=== PATIENT | male | born 1940 | race Caucasian/White ===

== ENCOUNTER 2019-05-31 06:06 | Day surgery (SDC) | payer MEDICARE ==
[2019-05-31] MEDS ORDERED: Lactated Ringers 1,000 ML IV ONE (06:27)
[2019-05-31] MEDS ORDERED: Lactated Ringers 1,000 ML IV SCH (06:30)
[2019-05-31] MEDS ORDERED: DIPRIVAN 200 MG/20 ML IV ONE ×2 (07:27)
[2019-05-31 09:01] VITALS: O2SAT 97
[2019-05-31 09:05] VITALS: BP 122/68; PULSE 56
--- NOTE | 2019-05-31 10:21 | OP ---
SURGERY DATE/TIME: 05/31/2019 0743 PREOPERATIVE DIAGNOSIS: Screening exam. POSTOPERATIVE DIAGNOSIS: Scattered diverticula otherwise normal colon. PROCEDURE: Colonoscopy. SURGEON: Dr. Altamirano. ANESTHESIA: MAC. Medications given by anesthesia department. HISTORY: The patient is a 78 year-old white male patient presenting now for screening colonoscopy. He reports his previous one was over ten years ago. The patient was described the risks of the procedure including the risk of perforation, phlebitis, untoward reaction to medication, bleeding and missed lesions. The patient verbalized his understanding and desired to have the procedure performed. DESCRIPTION OF PROCEDURE: The patient was given the medications by the anesthesia department. He had continuous pulse oximetry, ECG monitoring, intermittent blood pressure monitoring and tidal CO2 monitoring during the examination. He was placed in the left lateral decubitus position. A digital rectal examination was performed and revealed normal anal sphincter tone, no masses and normal prostate. The flexible Olympus pediatric colonoscope was used to intubate the rectum. A view of the colon was developed sequentially to the cecum. Upon insertion and withdrawal, including a retroflex view in the rectum was noted a few scattered diverticula otherwise no mucosal lesions were encountered. The scope was removed from the patient who tolerated the procedure well and was sent back to OP recovery in good condition. The prep was noted to be fair.
== END 2019-05-31 09:18 | disposition home or self-care (01) ==
LOC: SDC 06:06
PROVIDERS: ATTEND Family Medicine
DX: Z12.11 Encounter for screening for malignant neoplasm of colon (principal); K57.30 Diverticulosis of large intestine without perforation or abscess without bleeding; E11.9 Type 2 diabetes mellitus without complications; I10 Essential (primary) hypertension
CPT/HCPCS: 82962; 99100; J2704

== ENCOUNTER 2021-08-03 15:01 | Observation (INO) | payer MEDICARE ==
--- NOTE | 2021-08-03 15:09 | ERPHSYRPT ---
- History of Present Illness Time Seen by Provider: 08/03/21 15:09 Source: patient Exam Limitations: clinical condition Physician History: This is an 80-year-old white male patient of Dr. Altamirano who has not been feeling well for the last 1 to 2 weeks. He has been having weakness and diarrhea intermittently. He did not have any diarrhea today. He had an appointment to see Dr. Altamirano in his office today. The patient did see outpatient clinic 2 days ago and was given crystalloid infusion intravenously. They told the patient he was dehydrated. According to the patient, no labs were obtained and no swabs were obtained to evaluate for any influenza infection. At Dr. Altamirano's office, Dr. Altamirano stated that the patient's heart rate is in the 130s. They did not do a twelve-lead EKG. Because of the patient's weakness and findings of at least tachycardia in the 130s, Dr. Altamirano sent the patient to the emergency department for further evaluation and management. Patient has a history of hypertension, elevated cholesterol and diabetes. Patient denies ch est pain. He chronically has abdominal pain and it is not different than usual for him. Timing/Duration: week(s) (1 to 2), worse Severity: moderate Associated Symptoms: weakness, other (Diarrhea) Allergies/Adverse Reactions: amoxicillin Allergy (Severe, Verified 08/01/21 16:43) Diarrhea Home Medications: Amlodipine Besylate 5 mg [Norvasc 5 mg] 5 mg PO DAILY 05/18/19 [History] Aspirin EC 81 mg [Ecotrin 81 mg] 81 mg PO UD 05/18/19 [History] Canagliflozin [Invokana] 100 mg PO DAILY 05/18/19 [History] Garlic 1,000 mg PO DAILY 05/18/19 [History] Glipizide 5 mg [Glucotrol 5 MG] 5 mg PO QID 05/18/19 [History] Multivitamin W-Minerals/Lutein [Centrum Silver Tablet] 1 each PO DAILY 05/18/19 [History] Red Yeast Rice 600 mg PO DAILY 05/18/19 [History] Saw [place] Fruit/Zinc Picoli [Saw [place] 450 mg Capsule] 1 each PO DAILY 05/18/19 [History] Terazosin HCl 2 mg PO DAILY 05/18/19 [History] ramipriL [Altace] 10 mg PO DAILY 05/18/19 [History] [place]-3 Fatty Acids [[place]-3] 1,000 mg PO DAILY 08/01/21 [History] Simvastatin 20Mg [Zocor 20Mg] 20 mg PO DAILY 08/01/21 [History] Travel Risk - International Travel Have you traveled outside of the country in past 3 weeks: No - Coronavirus Screening Are you exhibiting any of the following symptoms?: Yes Symptoms: Vomiting/Diarrhea Close contact with a COVID-19 positive Pt in past 14-21 Days: No - Review of Systems Constitutional: Weakness Eyes: No Symptoms Ears, Nose, & Throat: No Symptoms Respiratory: No Symptoms Cardiac: Palpitations Abdominal/Gastrointestinal: Diarrhea, No Abdominal Pain Genitourinary Symptoms: No Symptoms Musculoskeletal: No Symptoms Skin: No Symptoms Neurological: No Symptoms Psychological: No Symptoms Endocrine: No Symptoms Hematologic/Lymphatic: No Symptoms Immunological/Allergic: No Symptoms All Other Systems: Reviewed and Negative - Past Medical History Pertinent Past Medical History: Yes Neurological History: No Pertinent History ENT History: No Pertinent History Cardiac History: Hypertension Respiratory History: No Pertinent History Endocrine Medical History: Diabetes Type II Musculoskeletal History: No Pertinent History GI Medical History: No Pertinent History History: No Pertinent History Psycho-Social History: No Pertinent History Male Reproductive Disorders: No Pertinent History Other Medical History: hx smoker - Past Surgical History Past Surgical History: Yes Neuro Surgical History: No Pertinent History Cardiac: No Pertinent History Respiratory: No Pertinent History Gastrointestinal: Appendectomy Genitourinary: No Pertinent History Musculoskeletal: Other Male Surgical History: No Pertinent History Other Surgical History: plate and screws in lt elbow. - Social History Smoking Status: Former smoker Exposure to second hand smoke: No Drug Use: none - Nursing Vital Signs Nursing Vital Signs: Initial Vital Signs Temperature 98.2 F 08/03/21 15:15 Pulse Rate 93 H 08/03/21 15:15 Respiratory Rate 18 08/03/21 15:15 Blood Pressure 147/81 08/03/21 15:15 O2 Sat by Pulse Oximetry 97 08/03/21 15:15 Pain Scale Pain Intensity 8 - Physical Exam General Appearance: no apparent distress, alert, anxiety Eye Exam: PERRL/EOMI, eyes nml inspection Ears, Nose, Throat Exam: normal ENT inspection, dry mucous membranes Neck Exam: normal inspection, non-tender, supple, full range of motion Respiratory Exam: normal breath sounds, lungs clear, airway intact, No chest tenderness, No respiratory distress Cardiovascular Exam: regular rate/rhythm, normal heart sounds, normal peripheral pulses Gastrointestinal/Abdomen Exam: soft, normal bowel sounds, No tenderness Rectal Exam: not done Back Exam: normal inspection, normal range of motion, No CVA tenderness, No vertebral tenderness Extremity Exam: normal inspection, normal range of motion, pelvis stable Neurologic Exam: alert, oriented x 3, cooperative, 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, normal mood/affect, nml cerebellar function, nml station & gait, sensation nml Skin Exam: normal color, warm, dry Lymphatic Exam: No adenopathy SpO2 Interpretation: normal O2 Delivery: Room Air - Course Nursing assessment & vital signs reviewed: Yes EKG Interpreted by Me: RATE (100), Sinus Tach, Left [place] Deviation, NORMAL INTERVALS, NORMAL QRS, NORMAL ST-T, Other (No acute ischemic changes on today's EKG.) Ordered Tests: Active Orders 24 hr Category Date Time Status EKG-ER Only STAT Care 08/03/21 15:09 Active IV Insertion STAT Care 08/03/21 15:09 Active Pulse Oximetry (ED) STAT Care 08/03/21 15:09 Active ABDOMEN AND PELVIS W/0 CONTRAS [CT] Stat Exams 08/03/21 16:10 Completed CHEST WITH CONTRAST [CT] Stat Exams 08/03/21 16:21 Completed AMYLASE Stat Lab 08/03/21 16:09 Completed BLOOD CULTURE Stat Lab 08/03/21 16:20 Received CBC W DIFF Stat Lab 08/03/21 15:09 Completed CMP Stat Lab 08/03/21 15:30 Completed D-DIMER QUANTITATIVE Stat Lab 08/03/21 15:30 Completed Direct Bilirubin Stat Lab 08/03/21 16:09 Completed INFLUENZA A+B DIEGO Stat Lab 08/03/21 16:20 Completed LIPASE Stat Lab 08/03/21 16:09 Completed Lactic Acid Stat Lab 08/03/21 15:21 Completed Manual Differential NC Stat Lab 08/03/21 15:09 Completed [place] Screen Stat Lab 08/03/21 15:30 Completed NT PRO BNP Stat Lab 08/03/21 15:30 Completed PROTIME WITH INR Stat Lab 08/03/21 15:30 Completed TROPONIN Q3H Lab 03/18/22 15:30 Completed TROPONIN Q3H Lab 08/03/21 17:29 Received TROPONIN Q3H Lab 08/03/21 21:15 Ordered TROPONIN Q3H Lab 08/04/21 00:15 Ordered TROPONIN Q3H Lab 08/04/21 03:15 Ordered Transfer Order Routine Transfer 08/03/21 Ordered Medication Summary Generic Name Dose Route Start Last Admin Trade Name Freyadi PRN Reason Stop Dose Admin Sodium Chloride 1,000 mls @ 100 mls/hr 08/03/21 15:15 08/03/21 15:34 Sodium Chloride 0.9% 1000 Ml IV 09/02/21 15:14 100 mls/hr .Q10H VICK Administration Discontinued Medications Generic Name Dose Route Start Last Admin Trade Name Freq PRN Reason Stop Dose Admin Apixaban 10 mg 08/03/21 17:36 Apixaban 2.5 Mg Tablet PO 08/03/21 17:37 STAT ONE Enoxaparin Sodium 90 mg 08/03/21 17:22 Enoxaparin Sodium 120 Mg/0.8 Ml Syringe SQ 08/03/21 17:23 STAT STA Lab/Rad Data: Laboratory Result Diagrams 08/03/21 15:09 08/03/21 15:30 Laboratory Results 08/03/21 08/03/21 08/03/21 Range/Units 16:20 16:20 16:09 WBC (4.0-10.5) K/mm3 RBC (4.1-5.6) M/mm3 Hgb (12.5-18.0) gm/dl Hct (42-50) % MCV (78-100) fl MCH (26-32) pg MCHC (32-36) g/dl RDW (11.5-14.0) % Plt Count (150-450) K/mm3 MPV (7.5-11.0) fl PT (9.4-12.5) SECONDS INR (0.8-3.0) D-Dimer (215-500) ng/mL Sodium (137-145) mmol/L Potassium (3.5-5.1) mmol/L Chloride (98-107) mmol/L Carbon Dioxide (22-30) mmol/L Anion Gap (5-15) MEQ/L BUN (9-20) mg/dL Creatinine (0.66-1.25) mg/dL Estimated GFR ML/MIN Glucose (74-106) mg/dL Lactic Acid (0.4-2.0) Calcium (8.4-10.2) mg/dL Total Bilirubin (0.2-1.3) mg/dL Direct Bilirubin 0.4 (0.0-0.4) mg/dL AST (17-59) U/L ALT (0-50) U/L Alkaline Phosphatase (38-126) U/L Troponin I (0.000-0.034) ng/mL NT-Pro-B Natriuret Pep (0-1800) pg/mL Serum Total Protein (6.3-8.2) g/dL Albumin (3.5-5.0) g/dL Amylase 45 (30-110) U/L Lipase 68 (23-300) U/L Urinalys Dipstick Clnc Urine Color (YELLOW) Urine Appearance (CLEAR) Urine pH (5-6) Ur Specific [place] (1.005-1.025) POC Urine Protein Conf (Negative) Urine Ketones (NEGATIVE) Urine Nitrite (NEGATIVE) Urine Bilirubin (NEGATIVE) Urine Urobilinogen (0-1) mg/dL Urine Leukocytes (NEGATIVE) Urine WBC (Auto) (0-5) /HPF Urine RBC (Auto) (0-2) /HPF U Epithel Cells (Auto) (FEW) /HPF Urine Bacteria (Auto) (NEGATIVE) /HPF Urine RBC (0-5) Romero/ul Ur Culture Indicated? Urine Glucose (NEGATIVE) mg/dL Monoscreen (Negative) Influenza Type A Ag NEGATIVE (NEGATIVE) Influenza Type B Ag NEGATIVE (NEGATIVE) Group A Strep Antibody NOT DETECTED (NEGATIVE) 08/03/21 08/03/21 08/03/21 Range/Units 15:30 15:30 15:30 WBC (4.0-10.5) K/mm3 RBC (4.1-5.6) M/mm3 Hgb (12.5-18.0) gm/dl Hct (42-50) % MCV (78-100) fl MCH (26-32) pg MCHC (32-36) g/dl RDW (11.5-14.0) % Plt Count (150-450) K/mm3 MPV (7.5-11.0) fl PT 12.4 (9.4-12.5) SECONDS INR 1.05 (0.8-3.0) D-Dimer 6163 H* (215-500) ng/mL Sodium (137-145) mmol/L Potassium (3.5-5.1) mmol/L Chloride (98-107) mmol/L Carbon Dioxide (22-30) mmol/L Anion Gap (5-15) MEQ/L BUN (9-20) mg/dL Creatinine (0.66-1.25) mg/dL Estimated GFR ML/MIN Glucose (74-106) mg/dL Lactic Acid (0.4-2.0) Calcium (8.4-10.2) mg/dL Total Bilirubin (0.2-1.3) mg/dL Direct Bilirubin (0.0-0.4) mg/dL AST (17-59) U/L ALT (0-50) U/L Alkaline Phosphatase (38-126) U/L Troponin I < 0.012 (0.000-0.034) ng/mL NT-Pro-B Natriuret Pep (0-1800) pg/mL Serum Total Protein (6.3-8.2) g/dL Albumin (3.5-5.0) g/dL Amylase (30-110) U/L Lipase (23-300) U/L Urinalys Dipstick Clnc Urine Color (YELLOW) Urine Appearance (CLEAR) Urine pH (5-6) Ur Specific [place] (1.005-1.025) POC Urine Protein Conf (Negative) Urine Ketones (NEGATIVE) Urine Nitrite (NEGATIVE) Urine Bilirubin (NEGATIVE) Urine Urobilinogen (0-1) mg/dL Urine Leukocytes (NEGATIVE) Urine WBC (Auto) (0-5) /HPF Urine RBC (Auto) (0-2) /HPF U Epithel Cells (Auto) (FEW) /HPF Urine Bacteria (Auto) (NEGATIVE) /HPF Urine RBC (0-5) Romero/ul Ur Culture Indicated? Urine Glucose (NEGATIVE) mg/dL Monoscreen NEGATIVE (Negative) Influenza Type A Ag (NEGATIVE) Influenza Type B Ag (NEGATIVE) Group A Strep Antibody (NEGATIVE) 08/03/21 08/03/21 08/03/21 Range/Units 15:30 15:24 15:21 WBC (4.0-10.5) K/mm3 RBC (4.1-5.6) M/mm3 Hgb (12.5-18.0) gm/dl Hct (42-50) % MCV (78-100) fl MCH (26-32) pg MCHC (32-36) g/dl RDW (11.5-14.0) % Plt Count (150-450) K/mm3 MPV (7.5-11.0) fl PT (9.4-12.5) SECONDS INR (0.8-3.0) D-Dimer (215-500) ng/mL Sodium 138 (137-145) mmol/L Potassium 4.1 (3.5-5.1) mmol/L Chloride 102 (98-107) mmol/L Carbon Dioxide 22 (22-30) mmol/L Anion Gap 17.8 H (5-15) MEQ/L BUN 16 (9-20) mg/dL Creatinine 0.78 (0.66-1.25) mg/dL Estimated GFR > 60.0 ML/MIN Glucose 145 H (74-106) mg/dL Lactic Acid 1.8 (0.4-2.0) Calcium 9.2 (8.4-10.2) mg/dL Total Bilirubin 0.90 (0.2-1.3) mg/dL Direct Bilirubin (0.0-0.4) mg/dL AST 26 (17-59) U/L ALT 16 (0-50) U/L Alkaline Phosphatase 56 (38-126) U/L Troponin I (0.000-0.034) ng/mL NT-Pro-B Natriuret Pep 61.7 (0-1800) pg/mL Serum Total Protein 6.5 (6.3-8.2) g/dL Albumin 3.7 (3.5-5.0) g/dL Amylase (30-110) U/L Lipase (23-300) U/L Urinalys Dipstick Clnc Pending Urine Color YELLOW (YELLOW) Urine Appearance CLEAR (CLEAR) Urine pH 5.5 (5-6) Ur Specific [place] 1.020 (1.005-1.025) POC Urine Protein Conf NEGATIVE (Negative) Urine Ketones >=160 (NEGATIVE) Urine Nitrite NEGATIVE (NEGATIVE) Urine Bilirubin SMALL (NEGATIVE) Urine Urobilinogen 0.2 (0-1) mg/dL Urine Leukocytes NEGATIVE (NEGATIVE) Urine WBC (Auto) NONE (0-5) /HPF Urine RBC (Auto) NONE (0-2) /HPF U Epithel Cells (Auto) NONE (FEW) /HPF Urine Bacteria (Auto) NONE (NEGATIVE) /HPF Urine RBC NEGATIVE (0-5) Romero/ul Ur Culture Indicated? NO Urine Glucose >=1000 (NEGATIVE) mg/dL Monoscreen (Negative) Influenza Type A Ag (NEGATIVE) Influenza Type B Ag (NEGATIVE) Group A Strep Antibody (NEGATIVE) 08/03/21 Range/Units 15:09 WBC 11.0 H (4.0-10.5) K/mm3 RBC 5.01 (4.1-5.6) M/mm3 Hgb 14.3 (12.5-18.0) gm/dl Hct 44.2 (42-50) % MCV 88.2 (78-100) fl MCH 28.5 (26-32) pg MCHC 32.4 (32-36) g/dl RDW 16.4 H (11.5-14.0) % Plt Count 242 (150-450) K/mm3 MPV 9.7 (7.5-11.0) fl PT (9.4-12.5) SECONDS INR (0.8-3.0) D-Dimer (215-500) ng/mL Sodium (137-145) mmol/L Potassium (3.5-5.1) mmol/L Chloride (98-107) mmol/L Carbon Dioxide (22-30) mmol/L Anion Gap (5-15) MEQ/L BUN (9-20) mg/dL Creatinine (0.66-1.25) mg/dL Estimated GFR ML/MIN Glucose (74-106) mg/dL Lactic Acid (0.4-2.0) Calcium (8.4-10.2) mg/dL Total Bilirubin (0.2-1.3) mg/dL Direct Bilirubin (0.0-0.4) mg/dL AST (17-59) U/L ALT (0-50) U/L Alkaline Phosphatase (38-126) U/L Troponin I (0.000-0.034) ng/mL NT-Pro-B Natriuret Pep (0-1800) pg/mL Serum Total Protein (6.3-8.2) g/dL Albumin (3.5-5.0) g/dL Amylase (30-110) U/L Lipase (23-300) U/L Urinalys Dipstick Clnc Urine Color (YELLOW) Urine Appearance (CLEAR) Urine pH (5-6) Ur Specific [place] (1.005-1.025) POC Urine Protein Conf (Negative) Urine Ketones (NEGATIVE) Urine Nitrite (NEGATIVE) Urine Bilirubin (NEGATIVE) Urine Urobilinogen (0-1) mg/dL Urine Leukocytes (NEGATIVE) Urine WBC (Auto) (0-5) /HPF Urine RBC (Auto) (0-2) /HPF U Epithel Cells (Auto) (FEW) /HPF Urine Bacteria (Auto) (NEGATIVE) /HPF Urine RBC (0-5) Romero/ul Ur Culture Indicated? Urine Glucose (NEGATIVE) mg/dL Monoscreen (Negative) Influenza Type A Ag (NEGATIVE) Influenza Type B Ag (NEGATIVE) Group A Strep Antibody (NEGATIVE) - Progress Progress: improved, re-examined Progress Note: 08/03/21 17:37 CAT scan of the abdomen without contrast shows fluid in the stomach and small bowel loops. Ileus versus gastroenteritis. There are tiny amount of fluid around the liver, both colic gutters and pelvis. This is presumed to be reactive. There are no walled off fluid collections. There is no free air. CAT scan of the chest with contrast shows extensive nonoccluding bilateral pulmonary emboli. 08/03/21 17:38 Medical decision making: This patient has had diarrhea for approximately 1 week. He has evidence of dehydration with ketones in his urine. He was tachycardic as well. In addition, it appears he has an ileus versus gastroenteritis. He will require intravenous fluid infusion. Additionally, he has pulmonary emboli bilateral which are nonoccluding. I spoke with Dr. Mina who is covering is hospitalist this weekend. Patient will receive Lovenox now as well as 10 mg Eliquis orally and then Eliquis 10 mg orally twice daily x7 days. We will place him in observation. We will repeat labs in the morning. Discussed with : Anastasiya Counseled pt/family regarding: lab results, diagnosis, rad results - Departure Departure Disposition: Observation Clinical Impression: Gastroenteritis, Dehydration, Pulmonary emboli Condition: Fair Critical Care Time: Yes Critical Care Time(excluding separately billable procedures): Critical 30-74 mins (40 minutes) Referrals: LUCERO ALTAMIRANO [Primary Care Provider] - Follow up/PCP as directed
[2021-08-03] MEDS ORDERED: Sodium Chloride 0.9% 1000 ML 1,000 ML IV SCH (15:15)
[2021-08-03] MEDS ORDERED: Sodium Chloride 0.9% 1000 ML 0 ML ONE (15:28)
[2021-08-03] MEDS ORDERED: Sodium Chloride 0.9% 1000 ML 1,000 ML ONE (15:34)
[2021-08-03 15:41] LABS: Hematocrit 44.2 % (42-50); Hemoglobin 14.3 gm/dl (12.5-18.0); Mean Cell Volume 88.2 fl (78-100); Mean Corpuscular Hemoglobin 28.5 pg (26-32); Mean Corpuscular Hgb Concent. 32.4 g/dl (32-36); Mean Platelet Volume 9.7 fl (7.5-11.0); Platelet Count 242 K/mm3 (150-450); Red Blood Count 5.01 M/mm3 (4.1-5.6); Red Cell Distribution Width 16.4 % (11.5-14.0)
[2021-08-03 15:58] LABS: INR 1.05 (0.8-3.0); PROTIME 12.4 SECONDS (9.4-12.5)
[2021-08-03 16:10] LABS: ALBUMIN 3.7 g/dL (3.5-5.0); ALKALINE PHOSPHATASE 56 U/L (38-126); ANION GAP 17.8 MEQ/L (5-15); BLOOD UREA NITROGEN 16 mg/dL (9-20); CHLORIDE 102 mmol/L (98-107); Calcium 9.2 mg/dL (8.4-10.2); Carbon Dioxide 22 mmol/L (22-30); Creatinine 1 0.78 mg/dL (0.66-1.25); EST GLOMERULAR FILTRATION RATE > 60.0 ML/MIN; Glucose 145 mg/dL (74-106); NT PRO BNP 61.7 pg/mL (0-1800); Potassium 4.1 mmol/L (3.5-5.1); SGOT/AST 26 U/L (17-59); SGPT/ALT 16 U/L (0-50); SODIUM 138 mmol/L (137-145); Total Protein 6.5 g/dL (6.3-8.2)
[2021-08-03 16:43] LABS: Direct Bilirubin 0.4 mg/dL (0.0-0.4)
[2021-08-03 16:48] LABS: INFLUENZA A NEGATIVE (NEGATIVE); INFLUENZA B NEGATIVE (NEGATIVE)
[2021-08-03 17:14] LABS: Appearance CLEAR (CLEAR)
[2021-08-03 17:15] LABS: Bilirubin SMALL (NEGATIVE); Glucose >=1000 mg/dL (NEGATIVE); Ketones >=160 (NEGATIVE); Nitrite NEGATIVE (NEGATIVE); Ph 5.5 (5-6); Protein,Urine Dip NEGATIVE (Negative); RBC NEGATIVE Ery/ul (0-5); Urobilinogen 0.2 mg/dL (0-1)
--- NOTE | 2021-08-03 17:17 | XRAY ---
Indication: Abdomen pain, diarrhea, tachycardia, and elevated d-dimer. Multiple contiguous axial images obtained through the chest using 100 cc Isovue 370 contrast and PE protocol. Comparison: None There is good opacification of the pulmonary arteries to include the lobar and segmental branches. Nonoccluding pulmonary emboli seen in both main pulmonary arteries extending into the lobar/segmental branch of the right lower lobe and lesser degree left upper lobe. Heart not enlarged. Aorta is normal in course and caliber with minimal scattered calcifications. Small subcarinal and right hilar calcified nodes. Lungs demonstrates diffuse pulmonary emphysema with scattered fibrosis/scarring, right greater than left. Small right costophrenic angle calcified granuloma. No consolidation or effusion. Bony thorax intact with mild osteopenia and minimal degenerative changes throughout the spine. CT abdomen/pelvis reported separately. Impression: 1. Extensive nonoccluding bilateral pulmonary emboli as detailed. 2. Incidental scattered bilateral fibrosis/scarring and old granulomatous disease.
[2021-08-03] MEDS ORDERED: ENOXAPARIN SODIUM SQ STA (17:22)
--- NOTE | 2021-08-03 17:23 | XRAY ---
Indication: Abdomen pain, diarrhea, and tachycardia. Multiple contiguous axial images obtained through the abdomen and pelvis without contrast. Comparison: None CT chest reported separately. Study slightly degraded by mild respiration artifact throughout. Noncontrasted stomach and bowel loops are mild/moderately fluid distended throughout with fluid leveling, ileus versus gastroenteritis. Tiny fluid around liver, both colic gutters and pelvis presumed reactive. No walled off fluid collection or free air. Mild diffuse scattered colonic diverticulosis and fecal debris. Gallbladder contracted or surgically absent. Splenic calcified granulomas. Remaining liver, pancreas, spleen, adrenal glands, kidneys, ureters, and bladder are unremarkable for noncontrast exam. Mild scattered aortoiliac calcifications without AAA. Osseous structures intact with mild osteopenia and mild/moderate degenerative changes throughout the thoracolumbar spine. Impression: 1. Respiration artifact. 2. Fluid distended stomach and small bowel loops with fluid leveling, ileus versus gastroenteritis. Tiny abdominal/pelvic free fluid presumed reactive. 3. Mild scattered colonic fecal debris and diverticulosis. 4. Incidental arteriosclerotic disease, chronic bony findings, and old granulomatous disease.
[2021-08-03] MEDS ORDERED: ELIQUIS 2.5 MG TABLET PO ONE (17:36)
[2021-08-03 17:52] LABS: Dipstick done @ ? MAIN LAB
[2021-08-03 19:19] LABS: INFLUENZA A NEGATIVE (NEGATIVE); INFLUENZA B NEGATIVE (NEGATIVE); RESPIRATORY SYNCTIAL VIRUS NEGATIVE (Negative)
[2021-08-03] MEDS ORDERED: ENOXAPARIN SODIUM SQ ONE (19:34)
[2021-08-03 19:43] LABS: SARS-CoV-2 Xpert Express POSITIVE (NEGATIVE)
[2021-08-03] MEDS ORDERED: Zofran 4 MG/2 ML VIAL IV PRN (21:32)
[2021-08-03] MEDS ORDERED: REMDESIVIR 200 MG in Sodium Chloride 0.9% 250 ML 250 ML IV ONE (21:32)
[2021-08-03] MEDS ORDERED: TYLENOL 325 MG PO PRN (21:32)
[2021-08-03 21:35] LABS: ATYPICAL LYMPHS 3 %; Eosinophil 1 % (0.00-3.0); Lymphocytes 13 % (24-44); Monocyte 11 % (0.0-12.0); Neutrophils 72 % (36.-66.); Platelet Estimate NORMAL (NORMAL); Total Cells Counted 100
[2021-08-03] MEDS ORDERED: Sodium Chloride 0.9% 250 ML 250 ML IV ONE (21:43)
[2021-08-03] MEDS ORDERED: REMDESIVIR IV ONE (21:43)
[2021-08-03] MEDS: Sodium Chloride 0.9% 1000 ML 1,000 ML IV SCH (23:11)
[2021-08-04] MEDS: ELIQUIS 2.5 MG TABLET PO SCH ×3 (00:19→21:01)
[2021-08-04 05:12] LABS: Absolute Neutrophil Ct (ANC) 5.41 (1.4-6.9); Basophil (Absolute #) 0.03 (0-0.4); Eosinophil % 2.5 % (0.00-5.0); Eosinophil (Absolute #) 0.21 (0-0.5); Hemoglobin 13.5 gm/dl (12.5-18.0); Lymphocyte (Absolute #) 1.56 (1.0-4.6); Lymphocytes % 18.9 % (24.0-44.0); Mean Cell Volume 88.6 fl (78-100); Mean Corpuscular Hemoglobin 28.5 pg (26-32); Mean Corpuscular Hgb Concent. 32.1 g/dl (32-36); Mean Platelet Volume 9.5 fl (7.5-11.0); Monocyte (Absolute #) 1.03 (0.0-1.3); Monocytes % 12.5 % (0.0-12.0); Neutrophil % 65.7 % (36.0-66.0); Platelet Count 221 K/mm3 (150-450); Red Blood Count 4.74 M/mm3 (4.1-5.6); Red Cell Distribution Width 16.4 % (11.5-14.0); White Blood Count 8.2 K/mm3 (4.0-10.5)
[2021-08-04 05:43] LABS: ALBUMIN 3.3 g/dL (3.5-5.0); ALKALINE PHOSPHATASE 47 U/L (38-126); ANION GAP 9.8 MEQ/L (5-15); BLOOD UREA NITROGEN 14 mg/dL (9-20); CHLORIDE 107 mmol/L (98-107); Calcium 8.3 mg/dL (8.4-10.2); Carbon Dioxide 26 mmol/L (22-30); Creatinine 1 0.73 mg/dL (0.66-1.25); EST GLOMERULAR FILTRATION RATE > 60.0 ML/MIN; Glucose 67 mg/dL (74-106); SGOT/AST 26 U/L (17-59); SGPT/ALT 15 U/L (0-50); SODIUM 138 mmol/L (137-145); Total Protein 6.1 g/dL (6.3-8.2)
[2021-08-04] MEDS: Sodium Chloride 0.9% 1000 ML 1,000 ML IV SCH (09:08)
[2021-08-04] MEDS ORDERED: OLUMIANT PO SCH (10:00)
[2021-08-04] MEDS ORDERED: Sodium Chloride 0.9% 1000 ML 1,000 ML IV SCH (10:30)
--- NOTE | 2021-08-04 10:33 | PCM.HP ---
History of Present Illness - Chief Complaint Chief Complaint: gastroenteritis, dehydration, PE, COVID History of Present Illness: is a 80 year old male pt of Dr. Altamirano with PMHx DMII, hyperlipidemia, and HTN who came to ER and was admitted with bilateral PEs, covid and ileus v gastroenteritis. He had been feeling ill for just over a week. He attended a meeting in [place] then didn't feel right. Had several days of liquid stool with incontinence of bowel. Was dizzy any time he was up. No syncope. He had nausea and some vomiting. Hasn't eaten well all week. He did go to earlier in the week and was neg for flu and given IV fluids. He went to see Dr. Altamirano yesterday; HR was 130 so he was sent to ER. He received several bags of fluids. He did have some abd pain, but that is currently gone. He is feeling "fine, just sitting here," but hasn't been up yet today. He has been drinking fluids and tolerating small amounts of crackers. - Review of Systems Abdominal/Gastrointestinal: Abdominal Pain, Nausea, Vomiting, Diarrhea, Appetite Changes Neurological: Dizziness All Other Systems: Reviewed and Negative Medications & Allergies Home Medications: Home Medication List Amlodipine Besylate 5 mg [Norvasc 5 mg] 5 mg PO DAILY 05/18/19 [History Confirmed 08/04/21] Aspirin EC 81 mg [Ecotrin 81 mg] 81 mg PO UD 05/18/19 [History Confirmed 08/04/21] Canagliflozin [Invokana] 100 mg PO DAILY 05/18/19 [History Confirmed 08/04/21] Garlic 1,000 mg PO DAILY 05/18/19 [History Confirmed 08/04/21] Glipizide 5 mg [Glucotrol 5 MG] 5 mg PO QID 05/18/19 [History Confirmed 08/04/21] Multivitamin W-Minerals/Lutein [Centrum Silver Tablet] 1 each PO DAILY 05/18/19 [History Confirmed 08/04/21] Red Yeast Rice 600 mg PO DAILY 05/18/19 [History Confirmed 08/04/21] Saw [place] Fruit/Zinc Picoli [Saw [place] 450 mg Capsule] 1 each PO DAILY 05/18/19 [History Confirmed 08/04/21] Terazosin HCl 2 mg PO DAILY 05/18/19 [History Confirmed 08/04/21] ramipriL [Altace] 10 mg PO DAILY 05/18/19 [History Confirmed 08/04/21] Vilas-3 Fatty Acids [Vilas-3] 1,000 mg PO DAILY 08/01/21 [History Confirmed 08/04/21] Simvastatin 20Mg [Zocor 20Mg] 20 mg PO DAILY 08/01/21 [History Confirmed 08/04/21] Allergies/Adverse Reactions: Allergies Allergy/AdvReac Type Severity Reaction Status Date / Time amoxicillin Allergy Severe Diarrhea Verified 08/01/21 16:43 - Past Medical History Past Medical History: Yes Neurological History: No Pertinent History ENT History: No Pertinent History Cardiac History: Hypertension Respiratory History: No Pertinent History Endocrine Medical History: Diabetes Type II Musculoskelatal History: No Pertinent History GI Medical History: No Pertinent History History: No Pertinent History Pyscho-Social History: No Pertinent History Male Reproductive Disorders: No Pertinent History Comment: hx smoker - Past Surgical History Past Surgical History: Yes Neuro Surgical History: No Pertinent History Cardiac History: No Pertinent History Respiratory Surgery: No Pertinent History GI Surgical History: Appendectomy Genitourinary Surgical Hx: No Pertinent History Musculskeletal Surgical Hx: Other Male Surgical History: No Pertinent History Other Surgical History: plate and screws in lt elbow. - Social History Smoking Status: Former smoker Exposure to second hand smoke: Yes Alcohol: None Drug Use: none - Physical Exam Vital Signs: Vital Signs - 24 hr Temp Pulse Pulse Resp BP Pulse Ox 08/04/21 09:57 72 17 90 L 08/04/21 08:00 97.8 F 74 18 131/68 94 L 08/04/21 06:00 69 16 90 L 08/04/21 04:00 97.3 F 74 16 133/69 94 L 08/04/21 02:00 67 16 92 L 08/04/21 00:00 72 17 92 L 08/03/21 23:00 97.6 F 89 16 136/77 96 08/03/21 21:32 96 08/03/21 20:06 90 22 139/78 94 L 08/03/21 19:16 90 21 144/79 92 L 08/03/21 18:18 88 18 135/78 95 08/03/21 17:00 93 H 17 132/80 94 L 08/03/21 16:03 93 H 23 128/75 93 L 08/03/21 15:25 94 H 08/03/21 15:15 98.2 F 93 H 18 147/81 98 General Appearance: no apparent distress, alert Neurologic Exam: oriented x 3, cooperative, normal mood/affect Eye Exam: eyes nml inspection Ears, Nose, Throat Exam: moist mucous membranes (though lips appear a little dry) Neck Exam: normal inspection, non-tender, No lymphadenopathy, No thyromegaly Respiratory Exam: diminished breath sounds (in [place], otherwise good air exchange), No crackles/rales, No rhonchi, No wheezing Cardiovascular Exam: regular rate/rhythm, normal heart sounds, No murmur Gastrointestinal/Abdomen Exam: soft, normal bowel sounds, No tenderness, No distention, No mass, No guarding, No rebound Back Exam: normal inspection, No CVA tenderness, No rash Extremity Exam: normal inspection, No pedal edema, No swelling Skin Exam: normal color, warm, dry, No rash Results - Labs Lab/Micro Results: Lab Results-Last 24 Hours 08/03/21 08/03/21 08/03/21 Range/Units 15:09 15:21 15:24 WBC 11.0 H (4.0-10.5) K/mm3 RBC 5.01 (4.1-5.6) M/mm3 Hgb 14.3 (12.5-18.0) gm/dl Hct 44.2 (42-50) % MCV 88.2 (78-100) fl MCH 28.5 (26-32) pg MCHC 32.4 (32-36) g/dl RDW 16.4 H (11.5-14.0) % Plt Count 242 (150-450) K/mm3 MPV 9.7 (7.5-11.0) fl Gran % (36.0-66.0) % Eos # (Auto) (0-0.5) Absolute Lymphs (auto) (1.0-4.6) Absolute Monos (auto) (0.0-1.3) Lymphocytes % (24.0-44.0) % Monocytes % (0.0-12.0) % Eosinophils % (0.00-5.0) % Basophils % (0.0-0.4) % Absolute Granulocytes (1.4-6.9) Segmented Neutrophils 72 H (36.-66.) % Lymphocytes (Manual) 13 L (24-44) % Monocytes (Manual) 11 (0.0-12.0) % Eosinophils (Manual) 1 (0.00-3.0) % Basophils # (0-0.4) Atypical Lymphocytes 3 % Platelet Estimate NORMAL (NORMAL) RBC Morphology NORMAL PT (9.4-12.5) SECONDS INR (0.8-3.0) D-Dimer (215-500) ng/mL Sodium (137-145) mmol/L Potassium (3.5-5.1) mmol/L Chloride (98-107) mmol/L Carbon Dioxide (22-30) mmol/L Anion Gap (5-15) MEQ/L BUN (9-20) mg/dL Creatinine (0.66-1.25) mg/dL Estimated GFR ML/MIN Glucose (74-106) mg/dL POC Glucometer (74 to 106) mg/dL Lactic Acid 1.8 (0.4-2.0) Calcium (8.4-10.2) mg/dL Total Bilirubin (0.2-1.3) mg/dL Direct Bilirubin (0.0-0.4) mg/dL AST (17-59) U/L ALT (0-50) U/L Alkaline Phosphatase (38-126) U/L Troponin I (0.000-0.034) ng/mL NT-Pro-B Natriuret Pep (0-1800) pg/mL Serum Total Protein (6.3-8.2) g/dL Albumin (3.5-5.0) g/dL Amylase (30-110) U/L Lipase (23-300) U/L Urinalys Dipstick Clnc MAIN LAB Urine Color YELLOW (YELLOW) Urine Appearance CLEAR (CLEAR) Urine pH 5.5 (5-6) Ur Specific [place] 1.020 (1.005-1.025) POC Urine Protein Conf NEGATIVE (Negative) Urine Ketones >=160 (NEGATIVE) Urine Nitrite NEGATIVE (NEGATIVE) Urine Bilirubin SMALL (NEGATIVE) Urine Urobilinogen 0.2 (0-1) mg/dL Urine Leukocytes NEGATIVE (NEGATIVE) Urine WBC (Auto) NONE (0-5) /HPF Urine RBC (Auto) NONE (0-2) /HPF U Epithel Cells (Auto) NONE (FEW) /HPF Urine Bacteria (Auto) NONE (NEGATIVE) /HPF Urine RBC NEGATIVE (0-5) Romero/ul Ur Culture Indicated? NO Urine Glucose >=1000 (NEGATIVE) mg/dL Monoscreen (Negative) Influenza Type A Ag (NEGATIVE) Influenza Type B Ag (NEGATIVE) RSV (PCR) (Negative) SARS-CoV-2 (PCR) (NEGATIVE) Group A Strep Antibody (NEGATIVE) 08/03/21 08/03/21 08/03/21 Range/Units 15:30 15:30 15:30 WBC (4.0-10.5) K/mm3 RBC (4.1-5.6) M/mm3 Hgb (12.5-18.0) gm/dl Hct (42-50) % MCV (78-100) fl MCH (26-32) pg MCHC (32-36) g/dl RDW (11.5-14.0) % Plt Count (150-450) K/mm3 MPV (7.5-11.0) fl Gran % (36.0-66.0) % Eos # (Auto) (0-0.5) Absolute Lymphs (auto) (1.0-4.6) Absolute Monos (auto) (0.0-1.3) Lymphocytes % (24.0-44.0) % Monocytes % (0.0-12.0) % Eosinophils % (0.00-5.0) % Basophils % (0.0-0.4) % Absolute Granulocytes (1.4-6.9) Segmented Neutrophils (36.-66.) % Lymphocytes (Manual) (24-44) % Monocytes (Manual) (0.0-12.0) % Eosinophils (Manual) (0.00-3.0) % Basophils # (0-0.4) Atypical Lymphocytes % Platelet Estimate (NORMAL) RBC Morphology PT 12.4 (9.4-12.5) SECONDS INR 1.05 (0.8-3.0) D-Dimer 6163 H* (215-500) ng/mL Sodium 138 (137-145) mmol/L Potassium 4.1 (3.5-5.1) mmol/L Chloride 102 (98-107) mmol/L Carbon Dioxide 22 (22-30) mmol/L Anion Gap 17.8 H (5-15) MEQ/L BUN 16 (9-20) mg/dL Creatinine 0.78 (0.66-1.25) mg/dL Estimated GFR > 60.0 ML/MIN Glucose 145 H (74-106) mg/dL POC Glucometer (74 to 106) mg/dL Lactic Acid (0.4-2.0) Calcium 9.2 (8.4-10.2) mg/dL Total Bilirubin 0.90 (0.2-1.3) mg/dL Direct Bilirubin (0.0-0.4) mg/dL AST 26 (17-59) U/L ALT 16 (0-50) U/L Alkaline Phosphatase 56 (38-126) U/L Troponin I < 0.012 (0.000-0.034) ng/mL NT-Pro-B Natriuret Pep 61.7 (0-1800) pg/mL Serum Total Protein 6.5 (6.3-8.2) g/dL Albumin 3.7 (3.5-5.0) g/dL Amylase (30-110) U/L Lipase (23-300) U/L Urinalys Dipstick Clnc Urine Color (YELLOW) Urine Appearance (CLEAR) Urine pH (5-6) Ur Specific [place] (1.005-1.025) POC Urine Protein Conf (Negative) Urine Ketones (NEGATIVE) Urine Nitrite (NEGATIVE) Urine Bilirubin (NEGATIVE) Urine Urobilinogen (0-1) mg/dL Urine Leukocytes (NEGATIVE) Urine WBC (Auto) (0-5) /HPF Urine RBC (Auto) (0-2) /HPF U Epithel Cells (Auto) (FEW) /HPF Urine Bacteria (Auto) (NEGATIVE) /HPF Urine RBC (0-5) Romero/ul Ur Culture Indicated? Urine Glucose (NEGATIVE) mg/dL Monoscreen (Negative) Influenza Type A Ag (NEGATIVE) Influenza Type B Ag (NEGATIVE) RSV (PCR) (Negative) SARS-CoV-2 (PCR) (NEGATIVE) Group A Strep Antibody (NEGATIVE) 08/03/21 08/03/21 08/03/21 Range/Units 15:30 16:09 16:20 WBC (4.0-10.5) K/mm3 RBC (4.1-5.6) M/mm3 Hgb (12.5-18.0) gm/dl Hct (42-50) % MCV (78-100) fl MCH (26-32) pg MCHC (32-36) g/dl RDW (11.5-14.0) % Plt Count (150-450) K/mm3 MPV (7.5-11.0) fl Gran % (36.0-66.0) % Eos # (Auto) (0-0.5) Absolute Lymphs (auto) (1.0-4.6) Absolute Monos (auto) (0.0-1.3) Lymphocytes % (24.0-44.0) % Monocytes % (0.0-12.0) % Eosinophils % (0.00-5.0) % Basophils % (0.0-0.4) % Absolute Granulocytes (1.4-6.9) Segmented Neutrophils (36.-66.) % Lymphocytes (Manual) (24-44) % Monocytes (Manual) (0.0-12.0) % Eosinophils (Manual) (0.00-3.0) % Basophils # (0-0.4) Atypical Lymphocytes % Platelet Estimate (NORMAL) RBC Morphology PT (9.4-12.5) SECONDS INR (0.8-3.0) D-Dimer (215-500) ng/mL Sodium (137-145) mmol/L Potassium (3.5-5.1) mmol/L Chloride (98-107) mmol/L Carbon Dioxide (22-30) mmol/L Anion Gap (5-15) MEQ/L BUN (9-20) mg/dL Creatinine (0.66-1.25) mg/dL Estimated GFR ML/MIN Glucose (74-106) mg/dL POC Glucometer (74 to 106) mg/dL Lactic Acid (0.4-2.0) Calcium (8.4-10.2) mg/dL Total Bilirubin (0.2-1.3) mg/dL Direct Bilirubin 0.4 (0.0-0.4) mg/dL AST (17-59) U/L ALT (0-50) U/L Alkaline Phosphatase (38-126) U/L Troponin I (0.000-0.034) ng/mL NT-Pro-B Natriuret Pep (0-1800) pg/mL Serum Total Protein (6.3-8.2) g/dL Albumin (3.5-5.0) g/dL Amylase 45 (30-110) U/L Lipase 68 (23-300) U/L Urinalys Dipstick Clnc Urine Color (YELLOW) Urine Appearance (CLEAR) Urine pH (5-6) Ur Specific [place] (1.005-1.025) POC Urine Protein Conf (Negative) Urine Ketones (NEGATIVE) Urine Nitrite (NEGATIVE) Urine Bilirubin (NEGATIVE) Urine Urobilinogen (0-1) mg/dL Urine Leukocytes (NEGATIVE) Urine WBC (Auto) (0-5) /HPF Urine RBC (Auto) (0-2) /HPF U Epithel Cells (Auto) (FEW) /HPF Urine Bacteria (Auto) (NEGATIVE) /HPF Urine RBC (0-5) Romero/ul Ur Culture Indicated? Urine Glucose (NEGATIVE) mg/dL Monoscreen NEGATIVE (Negative) Influenza Type A Ag NEGATIVE (NEGATIVE) Influenza Type B Ag NEGATIVE (NEGATIVE) RSV (PCR) (Negative) SARS-CoV-2 (PCR) (NEGATIVE) Group A Strep Antibody (NEGATIVE) 08/03/21 08/03/21 08/03/21 Range/Units 16:20 17:29 17:56 WBC (4.0-10.5) K/mm3 RBC (4.1-5.6) M/mm3 Hgb (12.5-18.0) gm/dl Hct (42-50) % MCV (78-100) fl MCH (26-32) pg MCHC (32-36) g/dl RDW (11.5-14.0) % Plt Count (150-450) K/mm3 MPV (7.5-11.0) fl Gran % (36.0-66.0) % Eos # (Auto) (0-0.5) Absolute Lymphs (auto) (1.0-4.6) Absolute Monos (auto) (0.0-1.3) Lymphocytes % (24.0-44.0) % Monocytes % (0.0-12.0) % Eosinophils % (0.00-5.0) % Basophils % (0.0-0.4) % Absolute Granulocytes (1.4-6.9) Segmented Neutrophils (36.-66.) % Lymphocytes (Manual) (24-44) % Monocytes (Manual) (0.0-12.0) % Eosinophils (Manual) (0.00-3.0) % Basophils # (0-0.4) Atypical Lymphocytes % Platelet Estimate (NORMAL) RBC Morphology PT (9.4-12.5) SECONDS INR (0.8-3.0) D-Dimer (215-500) ng/mL Sodium (137-145) mmol/L Potassium (3.5-5.1) mmol/L Chloride (98-107) mmol/L Carbon Dioxide (22-30) mmol/L Anion Gap (5-15) MEQ/L BUN (9-20) mg/dL Creatinine (0.66-1.25) mg/dL Estimated GFR ML/MIN Glucose (74-106) mg/dL POC Glucometer (74 to 106) mg/dL Lactic Acid (0.4-2.0) Calcium (8.4-10.2) mg/dL Total Bilirubin (0.2-1.3) mg/dL Direct Bilirubin (0.0-0.4) mg/dL AST (17-59) U/L ALT (0-50) U/L Alkaline Phosphatase (38-126) U/L Troponin I < 0.012 (0.000-0.034) ng/mL NT-Pro-B Natriuret Pep (0-1800) pg/mL Serum Total Protein (6.3-8.2) g/dL Albumin (3.5-5.0) g/dL Amylase (30-110) U/L Lipase (23-300) U/L Urinalys Dipstick Clnc Urine Color (YELLOW) Urine Appearance (CLEAR) Urine pH (5-6) Ur Specific [place] (1.005-1.025) POC Urine Protein Conf (Negative) Urine Ketones (NEGATIVE) Urine Nitrite (NEGATIVE) Urine Bilirubin (NEGATIVE) Urine Urobilinogen (0-1) mg/dL Urine Leukocytes (NEGATIVE) Urine WBC (Auto) (0-5) /HPF Urine RBC (Auto) (0-2) /HPF U Epithel Cells (Auto) (FEW) /HPF Urine Bacteria (Auto) (NEGATIVE) /HPF Urine RBC (0-5) Romero/ul Ur Culture Indicated? Urine Glucose (NEGATIVE) mg/dL Monoscreen (Negative) Influenza Type A Ag NEGATIVE (NEGATIVE) Influenza Type B Ag NEGATIVE (NEGATIVE) RSV (PCR) NEGATIVE (Negative) SARS-CoV-2 (PCR) POSITIVE A (NEGATIVE) Group A Strep Antibody NOT DETECTED (NEGATIVE) 08/03/21 08/03/21 08/04/21 Range/Units 22:10 22:22 00:30 WBC (4.0-10.5) K/mm3 RBC (4.1-5.6) M/mm3 Hgb (12.5-18.0) gm/dl Hct (42-50) % MCV (78-100) fl MCH (26-32) pg MCHC (32-36) g/dl RDW (11.5-14.0) % Plt Count (150-450) K/mm3 MPV (7.5-11.0) fl Gran % (36.0-66.0) % Eos # (Auto) (0-0.5) Absolute Lymphs (auto) (1.0-4.6) Absolute Monos (auto) (0.0-1.3) Lymphocytes % (24.0-44.0) % Monocytes % (0.0-12.0) % Eosinophils % (0.00-5.0) % Basophils % (0.0-0.4) % Absolute Granulocytes (1.4-6.9) Segmented Neutrophils (36.-66.) % Lymphocytes (Manual) (24-44) % Monocytes (Manual) (0.0-12.0) % Eosinophils (Manual) (0.00-3.0) % Basophils # (0-0.4) Atypical Lymphocytes % Platelet Estimate (NORMAL) RBC Morphology PT (9.4-12.5) SECONDS INR (0.8-3.0) D-Dimer (215-500) ng/mL Sodium (137-145) mmol/L Potassium (3.5-5.1) mmol/L Chloride (98-107) mmol/L Carbon Dioxide (22-30) mmol/L Anion Gap (5-15) MEQ/L BUN (9-20) mg/dL Creatinine (0.66-1.25) mg/dL Estimated GFR ML/MIN Glucose (74-106) mg/dL POC Glucometer 79 (74 to 106) mg/dL Lactic Acid (0.4-2.0) Calcium (8.4-10.2) mg/dL Total Bilirubin (0.2-1.3) mg/dL Direct Bilirubin (0.0-0.4) mg/dL AST (17-59) U/L ALT (0-50) U/L Alkaline Phosphatase (38-126) U/L Troponin I < 0.012 < 0.012 (0.000-0.034) ng/mL NT-Pro-B Natriuret Pep (0-1800) pg/mL Serum Total Protein (6.3-8.2) g/dL Albumin (3.5-5.0) g/dL Amylase (30-110) U/L Lipase (23-300) U/L Urinalys Dipstick Clnc Urine Color (YELLOW) Urine Appearance (CLEAR) Urine pH (5-6) Ur Specific [place] (1.005-1.025) POC Urine Protein Conf (Negative) Urine Ketones (NEGATIVE) Urine Nitrite (NEGATIVE) Urine Bilirubin (NEGATIVE) Urine Urobilinogen (0-1) mg/dL Urine Leukocytes (NEGATIVE) Urine WBC (Auto) (0-5) /HPF Urine RBC (Auto) (0-2) /HPF U Epithel Cells (Auto) (FEW) /HPF Urine Bacteria (Auto) (NEGATIVE) /HPF Urine RBC (0-5) Romero/ul Ur Culture Indicated? Urine Glucose (NEGATIVE) mg/dL Monoscreen (Negative) Influenza Type A Ag (NEGATIVE) Influenza Type B Ag (NEGATIVE) RSV (PCR) (Negative) SARS-CoV-2 (PCR) (NEGATIVE) Group A Strep Antibody (NEGATIVE) 08/04/21 08/04/21 08/04/21 Range/Units 00:39 04:33 04:35 WBC (4.0-10.5) K/mm3 RBC (4.1-5.6) M/mm3 Hgb (12.5-18.0) gm/dl Hct (42-50) % MCV (78-100) fl MCH (26-32) pg MCHC (32-36) g/dl RDW (11.5-14.0) % Plt Count (150-450) K/mm3 MPV (7.5-11.0) fl Gran % (36.0-66.0) % Eos # (Auto) (0-0.5) Absolute Lymphs (auto) (1.0-4.6) Absolute Monos (auto) (0.0-1.3) Lymphocytes % (24.0-44.0) % Monocytes % (0.0-12.0) % Eosinophils % (0.00-5.0) % Basophils % (0.0-0.4) % Absolute Granulocytes (1.4-6.9) Segmented Neutrophils (36.-66.) % Lymphocytes (Manual) (24-44) % Monocytes (Manual) (0.0-12.0) % Eosinophils (Manual) (0.00-3.0) % Basophils # (0-0.4) Atypical Lymphocytes % Platelet Estimate (NORMAL) RBC Morphology PT (9.4-12.5) SECONDS INR (0.8-3.0) D-Dimer (215-500) ng/mL Sodium (137-145) mmol/L Potassium (3.5-5.1) mmol/L Chloride (98-107) mmol/L Carbon Dioxide (22-30) mmol/L Anion Gap (5-15) MEQ/L BUN (9-20) mg/dL Creatinine (0.66-1.25) mg/dL Estimated GFR ML/MIN Glucose (74-106) mg/dL POC Glucometer 68 L 74 (74 to 106) mg/dL Lactic Acid (0.4-2.0) Calcium (8.4-10.2) mg/dL Total Bilirubin (0.2-1.3) mg/dL Direct Bilirubin (0.0-0.4) mg/dL AST (17-59) U/L ALT (0-50) U/L Alkaline Phosphatase (38-126) U/L Troponin I < 0.012 (0.000-0.034) ng/mL NT-Pro-B Natriuret Pep (0-1800) pg/mL Serum Total Protein (6.3-8.2) g/dL Albumin (3.5-5.0) g/dL Amylase (30-110) U/L Lipase (23-300) U/L Urinalys Dipstick Clnc Urine Color (YELLOW) Urine Appearance (CLEAR) Urine pH (5-6) Ur Specific [place] (1.005-1.025) POC Urine Protein Conf (Negative) Urine Ketones (NEGATIVE) Urine Nitrite (NEGATIVE) Urine Bilirubin (NEGATIVE) Urine Urobilinogen (0-1) mg/dL Urine Leukocytes (NEGATIVE) Urine WBC (Auto) (0-5) /HPF Urine RBC (Auto) (0-2) /HPF U Epithel Cells (Auto) (FEW) /HPF Urine Bacteria (Auto) (NEGATIVE) /HPF Urine RBC (0-5) Romero/ul Ur Culture Indicated? Urine Glucose (NEGATIVE) mg/dL Monoscreen (Negative) Influenza Type A Ag (NEGATIVE) Influenza Type B Ag (NEGATIVE) RSV (PCR) (Negative) SARS-CoV-2 (PCR) (NEGATIVE) Group A Strep Antibody (NEGATIVE) 08/04/21 08/04/21 Range/Units 04:35 04:35 WBC 8.2 (4.0-10.5) K/mm3 RBC 4.74 (4.1-5.6) M/mm3 Hgb 13.5 (12.5-18.0) gm/dl Hct 42.0 (42-50) % MCV 88.6 (78-100) fl MCH 28.5 (26-32) pg MCHC 32.1 (32-36) g/dl RDW 16.4 H (11.5-14.0) % Plt Count 221 (150-450) K/mm3 MPV 9.5 (7.5-11.0) fl Gran % 65.7 (36.0-66.0) % Eos # (Auto) 0.21 (0-0.5) Absolute Lymphs (auto) 1.56 (1.0-4.6) Absolute Monos (auto) 1.03 (0.0-1.3) Lymphocytes % 18.9 L (24.0-44.0) % Monocytes % 12.5 H (0.0-12.0) % Eosinophils % 2.5 (0.00-5.0) % Basophils % 0.4 (0.0-0.4) % Absolute Granulocytes 5.41 (1.4-6.9) Segmented Neutrophils (36.-66.) % Lymphocytes (Manual) (24-44) % Monocytes (Manual) (0.0-12.0) % Eosinophils (Manual) (0.00-3.0) % Basophils # 0.03 (0-0.4) Atypical Lymphocytes % Platelet Estimate (NORMAL) RBC Morphology PT (9.4-12.5) SECONDS INR (0.8-3.0) D-Dimer (215-500) ng/mL Sodium 138 (137-145) mmol/L Potassium 4.0 (3.5-5.1) mmol/L Chloride 107 (98-107) mmol/L Carbon Dioxide 26 (22-30) mmol/L Anion Gap 9.8 (5-15) MEQ/L BUN 14 (9-20) mg/dL Creatinine 0.73 (0.66-1.25) mg/dL Estimated GFR > 60.0 ML/MIN Glucose 67 L (74-106) mg/dL POC Glucometer (74 to 106) mg/dL Lactic Acid (0.4-2.0) Calcium 8.3 L (8.4-10.2) mg/dL Total Bilirubin 0.50 (0.2-1.3) mg/dL Direct Bilirubin (0.0-0.4) mg/dL AST 26 (17-59) U/L ALT 15 (0-50) U/L Alkaline Phosphatase 47 (38-126) U/L Troponin I (0.000-0.034) ng/mL NT-Pro-B Natriuret Pep 78.0 (0-1800) pg/mL Serum Total Protein 6.1 L (6.3-8.2) g/dL Albumin 3.3 L (3.5-5.0) g/dL Amylase (30-110) U/L Lipase (23-300) U/L Urinalys Dipstick Clnc Urine Color (YELLOW) Urine Appearance (CLEAR) Urine pH (5-6) Ur Specific [place] (1.005-1.025) POC Urine Protein Conf (Negative) Urine Ketones (NEGATIVE) Urine Nitrite (NEGATIVE) Urine Bilirubin (NEGATIVE) Urine Urobilinogen (0-1) mg/dL Urine Leukocytes (NEGATIVE) Urine WBC (Auto) (0-5) /HPF Urine RBC (Auto) (0-2) /HPF U Epithel Cells (Auto) (FEW) /HPF Urine Bacteria (Auto) (NEGATIVE) /HPF Urine RBC (0-5) Romero/ul Ur Culture Indicated? Urine Glucose (NEGATIVE) mg/dL Monoscreen (Negative) Influenza Type A Ag (NEGATIVE) Influenza Type B Ag (NEGATIVE) RSV (PCR) (Negative) SARS-CoV-2 (PCR) (NEGATIVE) Group A Strep Antibody (NEGATIVE) - Radiology Impressions Radiology Exams & Impressions: Radiology Procedures Category Date Time Status ABDOMEN AND PELVIS W/0 CONTRAS [CT] Stat Exams 08/03/21 16:10 Completed CHEST WITH CONTRAST [CT] Stat Exams 08/03/21 16:21 Completed Assessment/Plan (1) Pulmonary emboli Current Visit: Yes Status: Acute Qualifiers: Pulmonary embolism type: multiple subsegmental (without acute cor pulmonale) Qualified Code(s): I26.94 - Multiple subsegmental pulmonary emboli without acute cor pulmonale Assessment & Plan: On Eliquis. Advised he will need to stay on this after discharge; will f/u with Dr. Altamirano outpatient regarding the course moving forward. Code(s): I26.99 - OTHER PULMONARY EMBOLISM WITHOUT ACUTE COR PULMONALE (2) COVID-19 Current Visit: Yes Status: Acute Assessment & Plan: On IV remdesivir. Gastrointestinal symptoms may be related to Covid, or may be independent. Code(s): U07.1 - COVID-19 (3) Dizziness Current Visit: Yes Status: Acute Assessment & Plan: If he continues to have dizziness, would do CT head. Code(s): R42 - DIZZINESS AND GIDDINESS (4) Gastroenteritis Current Visit: Yes Status: Acute Assessment & Plan: Vs ileus. Advised advancing diet slowly. When he can tolerate enough po and is not too dizzy to function, can be discharged to home. Code(s): K52.9 - NONINFECTIVE GASTROENTERITIS AND COLITIS, UNSPECIFIED (5) Dehydration Current Visit: Yes Status: Resolved Code(s): E86.0 - DEHYDRATION (6) Diabetes mellitus Current Visit: Yes Status: Acute Code(s): E11.9 - TYPE 2 DIABETES MELLITUS WITHOUT COMPLICATIONS (7) HTN (hypertension) Current Visit: Yes Status: Acute Code(s): I10 - ESSENTIAL (PRIMARY) HYPERTENSION
[2021-08-04] MEDS: Decadron 4 MG INJ IV SCH (10:39)
[2021-08-04] MEDS ORDERED: MEDICATION INTERVENTION MC SCH (11:00)
[2021-08-04] MEDS: NORVASC 5 MG PO SCH (11:13)
[2021-08-04] MEDS: HYTRIN 1 MG PO SCH (11:13)
[2021-08-04] MEDS: ZOCOR 20MG PO SCH (11:13)
[2021-08-04] MEDS: HUMULIN R SQ PRN (17:14)
[2021-08-04] MEDS ORDERED: REMDESIVIR 100 MG in Sodium Chloride 0.9% 100 ML BAG 100 ML IV SCH (22:00)
[2021-08-05] MEDS: ZOCOR 20MG PO SCH (09:52)
[2021-08-05] MEDS: Decadron 4 MG INJ IV SCH (09:52)
[2021-08-05] MEDS: ELIQUIS 2.5 MG TABLET PO SCH (09:52)
[2021-08-05] MEDS: HYTRIN 1 MG PO SCH (09:52)
[2021-08-05] MEDS: NORVASC 5 MG PO SCH (09:52)
--- NOTE | 2021-08-05 09:52 | PCM.DS ---
Discharge Summary Date of Admission: 08/03/21 21:25 Admitting Physician: LAURA MAGDALENO Primary Care Provider: LUCERO ALTAMIRANO Allergies Allergies amoxicillin Allergy (Severe, Verified 08/01/21 16:43) Diarrhea Hospital Summary - Hospital Course Hospital Course: Mr. Hyde is an 80 yo male pt of Dr. Altamirano with HTN, DM II, and hyperlipidemia who was admitted through ER with covid and likely gastroenteritis v ileus, with bilateral pulmonary emboli. He had nonobstructing PEs on CT chest, bilaterally, was given 1 dose of lovenox and started on po eliquis. His CT abd/pelvis with some fluid, nothing acute. COvid 19 + here. WBC mildly elevated initially but wnl the next morning. BMP wnl. He was having dizziness and very little appetite at home. He has occasional cough; has not been on O2. Has had 2 doses of IV remdesivir. Yesterday he had no dizziness, and he has started eating very well. Is passing flatus. Ate 100% of his breakfast. Is feeling "fine" and would like to go home. - Vitals & Intake/Output Vital Signs: Vital Signs Temperature 97.3 F 08/05/21 08:00 Pulse Rate 74 08/05/21 08:00 Respiratory Rate 21 08/05/21 08:00 Blood Pressure 126/69 08/05/21 08:00 O2 Sat by Pulse Oximetry 94 L 08/05/21 08:35 Intake & Output: Intake & Output 08/02/21 08/03/21 08/04/21 08/05/21 11:59 11:59 11:59 11:59 Intake Total 480 2600 Output Total 350 2025 Balance 130 575 Weight 90.718 kg - Lab Result Diagrams: 08/04/21 04:35 08/04/21 04:35 Lab Results-Last 24 Hrs: Lab Results-Last 24 Hours 08/04/21 08/04/21 08/04/21 Range/Units 11:22 16:15 21:08 POC Glucometer 129 H 220 H 224 H (74 to 106) mg/dL 08/05/21 Range/Units 07:55 POC Glucometer 91 (74 to 106) mg/dL Micro Results-Entire Visit: Microbiology 08/03/21 16:20 Blood Culture - Preliminary Blood NO GROWTH TO DATE 08/03/21 15:30 Blood Culture - Preliminary Blood NO GROWTH TO DATE Accuchecks Date 08/05/21 Date 08/04/21 Date 08/04/21 Date 08/04/21 Time 08:00 Time 16:34 Time 11:30 - Radiology Exams Ordered Rad Exams-Entire Visit: Radiology Procedures Category Date Time Status ABDOMEN AND PELVIS W/0 CONTRAS [CT] Stat Exams 08/03/21 16:10 Completed CHEST WITH CONTRAST [CT] Stat Exams 08/03/21 16:21 Completed - Procedures and Test Procedures and Tests throughout Hospitalization: Therapy Orders & Screens 08/03/21 21:32 EKG REPEAT IN AM Comment: Discharge Exam General Appearance: no apparent distress, alert Neurologic Exam: oriented x 3, cooperative, normal mood/affect Eye Exam: eyes nml inspection Ears, Nose, Throat Exam: moist mucous membranes Neck Exam: normal inspection Respiratory Exam: normal breath sounds, lungs clear, No crackles/rales, No rhonchi, No wheezing Cardiovascular Exam: regular rate/rhythm, normal heart sounds, No murmur Gastrointestinal/Abdomen Exam: soft, normal bowel sounds, No tenderness, No distention, No mass, No guarding, No rebound Extremity Exam: normal inspection, No pedal edema, No swelling Skin Exam: normal color, warm, dry, No rash Final Diagnosis/Problem List - Final Discharge Diagnosis/Problem (1) Pulmonary emboli Current Visit: Yes Status: Acute Assessment & Plan: Doing well clinically. Will finish 7d total of 10mg BID Eliquis, then start 5mg po BID. F/u with Dr. Altamirano in 1 week. Code(s): I26.99 - OTHER PULMONARY EMBOLISM WITHOUT ACUTE COR PULMONALE (2) COVID-19 Current Visit: Yes Status: Acute Assessment & Plan: Has finished 2d of IV remdesivir and dexamethasone, but honestly I think this was just an incidental finding and not related to his GI symptoms. It was likely, however, the cause of the PEs. I spoke with pharmacy and pt does not need to finish the third dose of remdesivir. Code(s): U07.1 - COVID-19 (3) Dizziness Current Visit: Yes Status: Resolved Code(s): R42 - DIZZINESS AND GIDDINESS (4) Gastroenteritis Current Visit: Yes Status: Resolved Code(s): K52.9 - NONINFECTIVE GASTROENTERITIS AND COLITIS, UNSPECIFIED (5) Dehydration Current Visit: Yes Status: Resolved Code(s): E86.0 - DEHYDRATION (6) Diabetes mellitus Current Visit: Yes Status: Chronic Code(s): E11.9 - TYPE 2 DIABETES MELLITUS WITHOUT COMPLICATIONS (7) HTN (hypertension) Current Visit: Yes Status: Chronic Code(s): I10 - ESSENTIAL (PRIMARY) HYPERTENSION - Discharge Disposition: Home, Self-Care Condition: Good Prescriptions: New Apixaban [Eliquis 5 mg Tablet] 10 mg PO BID #10 tablet Apixaban [Eliquis 5 mg Tablet] 5 mg PO BID #60 tablet Continue Saw [place] Fruit/Zinc Picoli [Saw [place] 450 mg Capsule] 1 each PO DAILY Garlic 1,000 mg PO DAILY Aspirin EC 81 mg [Ecotrin 81 mg] 81 mg PO UD Terazosin HCl 2 mg PO DAILY ramipriL [Altace] 10 mg PO DAILY Glipizide 5 mg [Glucotrol 5 MG] 5 mg PO QID Amlodipine Besylate 5 mg [Norvasc 5 mg] 5 mg PO DAILY Canagliflozin [Invokana] 100 mg PO DAILY Red Yeast Rice 600 mg PO DAILY Multivitamin W-Minerals/Lutein [Centrum Silver Tablet] 1 each PO DAILY Simvastatin 20Mg [Zocor 20Mg] 20 mg PO DAILY [place]-3 Fatty Acids [[place]-3] 1,000 mg PO DAILY Follow up with: LUCERO ALTAMIRANO [Primary Care Provider] -
[2021-08-05] MEDS ORDERED: ZINC PICOLI PO SCH (10:00)
[2021-08-05] MEDS ORDERED: [UNRECOGNIZED DRUG - OTHER] PO SCH (10:00)
[2021-08-05] MEDS ORDERED: SAW PALMETTO FRUIT PO SCH (10:00)
[2021-08-05] MEDS ORDERED: TERAZOSIN HCL 2 MG PO SCH (10:00)
[2021-08-05] MEDS ORDERED: ECOTRIN 81 MG PO SCH (10:00)
[2021-08-05] MEDS ORDERED: NON-FORMULARY ITEM (Ramipril [Altace] 10 MG Capsule) PO SCH (10:00)
[2021-08-05 10:08] LABS: ANION GAP 9.9 MEQ/L (5-15); BLOOD UREA NITROGEN 14 mg/dL (9-20); CHLORIDE 107 mmol/L (98-107); Calcium 7.7 mg/dL (8.4-10.2); Carbon Dioxide 24 mmol/L (22-30); Creatinine 1 0.69 mg/dL (0.66-1.25); EST GLOMERULAR FILTRATION RATE > 60.0 ML/MIN; Glucose 139 mg/dL (74-106); Potassium 3.4 mmol/L (3.5-5.1); SODIUM 138 mmol/L (137-145)
[2021-08-05 10:14] VITALS: PULSE 72
[2021-08-05 12:12] VITALS: BP 141/69; O2SAT 93
[2021-08-05] MEDS: HUMULIN R SQ PRN (12:13)
[2021-08-07 11:14] LABS: Adenovirus F40/41 Not Detected (Not Detected); Astrovirus Not Detected (Not Detected); Campylobacter Not Detected (Not Detected); Cryptosporidium Not Detected (Not Detected); Cyclospora cayetanensis Not Detected (Not Detected); Entamoeba histolytica Not Detected (Not Detected); Enteroaggregative E coli Not Detected (Not Detected); Giardia lamblia Not Detected (Not Detected); Norovirus GI/GII Detected (Not Detected); Plesiomonas shigelloides Not Detected (Not Detected); Rotavirus A Not Detected (Not Detected); Salmonella Not Detected (Not Detected); Shigella/Enterinvasive E coli Not Detected (Not Detected); Vibrio Not Detected (Not Detected); Vibrio cholerae Not Detected (Not Detected); Yersinia enterocolitica Not Detected (Not Detected)
[2021-08-07 13:15] LABS: Sapovirus Not Detected (Not Detected)
== END 2021-08-05 13:15 | disposition home or self-care (01) ==
LOC: ED 15:01 → MED SURG 21:25
PROVIDERS: ADMIT Family Medicine; ATTEND Family Medicine
DX: I26.99 Other pulmonary embolism without acute cor pulmonale (principal); U07.1 COVID-19; R42 Dizziness and giddiness; K52.9 Noninfective gastroenteritis and colitis, unspecified; E86.0 Dehydration; E11.9 Type 2 diabetes mellitus without complications; I10 Essential (primary) hypertension; E78.5 Hyperlipidemia, unspecified; Z79.01 Long term (current) use of anticoagulants; Z79.899 Other long term (current) drug therapy; Z20.828 Contact with and (suspected) exposure to other viral communicable diseases
CPT/HCPCS: 0097U; 0241U; 36000; 36415; 71260; 74176; 80048; 80053; 81015; 82150; 82248; 82947; 83605; 83690; 83880; 84484; 85025; 85379; 85610; 86308; 87040; 87400; 87651; 93005; 93268; 94760; 94762; 96372; 99284; 99291; G0378; J0248; J1100; J1650; J1815; A9270-GY

== ENCOUNTER 2022-06-24 14:49 | Emergency (ER) | payer MEDICARE ==
--- NOTE | 2022-06-24 15:46 | ERPHSYRPT ---
- History of Present Illness Time Seen by Provider: 06/24/22 15:40 Source: patient Exam Limitations: no limitations Patient Subjective Stated Complaint: R hip pain Triage Nursing Assessment: pt to ED by EMS c/o R hip pain that started last night. pt states this pain is frequently reoccurring but normally goes away on its own, however this morning the pain did not alleviate today. pt denies any trauma or injury, no obvious signs of injury noted on assessment. rates 9/10 pain now. pt has not ambulated since this morning and states pain increases with any movement or position changes. pain radiates down through R leg. Physician History: Patient is a 81-year-old male presents to our ED with severe right hip pain. Patient unable to bear weight on his right hip. Patient admits to a history of right hip pain however never to this level of intensity. Patient states that his hip pain in the past has occurred and eventually resolved. Patient currently rates his pain 9 out of 10. Patient declined pain medication. He states pain medication makes him feel sick. No trauma. No fever. Pain worse with flexion and internal rotation. Pain improved with rest. No associated abdominal pain. No chest pain. No shortness of breath. No nausea vomiting or diaphoresis. Patient voices no other complaints concerns at this time. Portions of this note were created with voice recognition technology. There may be grammatical, spelling, punctuation or sound alike errors Method of Injury: unknown Occurred: this morning Quality: constant Severity of Pain-Max: severe Severity of Pain-Current: moderate Lower Extremities Pain: hip: right Modifying Factors: Improves With: movement (Weightbearing also worsens symptoms) Associated Symptoms: none, No dizzy Allergies/Adverse Reactions: amoxicillin Allergy (Severe, Verified 06/24/22 14:54) Diarrhea Home Medications: Amlodipine Besylate 5 mg [Norvasc 5 mg] 5 mg PO DAILY 05/18/19 [History] Aspirin EC 81 mg [Ecotrin 81 mg] 81 mg PO UD 05/18/19 [History] Canagliflozin [Invokana] 100 mg PO DAILY 05/18/19 [History] Garlic 1,000 mg PO DAILY 05/18/19 [History] Glipizide 5 mg [Glucotrol 5 MG] 5 mg PO QID 05/18/19 [History] Multivitamin W-Minerals/Lutein [Centrum Silver Tablet] 1 each PO DAILY 05/18/19 [History] Red Yeast Rice 600 mg PO DAILY 05/18/19 [History] Saw [place] Fruit/Zinc Picoli [Saw Drain 450 mg Capsule] 1 each PO DAILY 05/18/19 [History] Terazosin HCl 2 mg PO DAILY 05/18/19 [History] ramipriL [Altace] 10 mg PO DAILY 05/18/19 [History] [place]-3 Fatty Acids [[place]-3] 1,000 mg PO DAILY 08/01/21 [History] Simvastatin 20Mg [Zocor 20Mg] 20 mg PO DAILY 08/01/21 [History] Hx Tetanus, Diphtheria Vaccination/Date Given: No (unsure) Hx Influenza Vaccination/Date Given: Yes Hx Pneumococcal Vaccination/Date Given: Yes Immunizations Up to Date: No Travel Risk - International Travel Have you traveled outside of the country in past 3 weeks: No - Coronavirus Screening Are you exhibiting any of the following symptoms?: No Close contact with a COVID-19 positive Pt in past 14-21 Days: No - Vaccine Status Have you recieved a Covid-19 vaccination: No - Review of Systems Constitutional: No Symptoms, No Fever, No Chills Eyes: No Symptoms Ears, Nose, & Throat: No Symptoms Respiratory: No Symptoms, No Cough, No Dyspnea Cardiac: No Symptoms, No Chest Pain, No Edema, No Syncope Abdominal/Gastrointestinal: No Symptoms, No Abdominal Pain, No Nausea, No Vomiting, No Diarrhea Genitourinary Symptoms: No Symptoms, No Dysuria Musculoskeletal: No Symptoms, No Back Pain, No Neck Pain Skin: No Symptoms, No Rash Neurological: No Symptoms, No Dizziness, No Focal Weakness, No Sensory Changes Psychological: No Symptoms Endocrine: No Symptoms Hematologic/Lymphatic: No Symptoms Immunological/Allergic: No Symptoms All Other Systems: Reviewed and Negative - Past Medical History Pertinent Past Medical History: Yes Neurological History: No Pertinent History ENT History: No Pertinent History Cardiac History: Hypertension Respiratory History: No Pertinent History Endocrine Medical History: Diabetes Type II Musculoskeletal History: No Pertinent History GI Medical History: No Pertinent History History: No Pertinent History Psycho-Social History: No Pertinent History Male Reproductive Disorders: No Pertinent History Other Medical History: hx smoker - Past Surgical History Past Surgical History: Yes Neuro Surgical History: No Pertinent History Cardiac: No Pertinent History Respiratory: No Pertinent History Gastrointestinal: Appendectomy Genitourinary: No Pertinent History Musculoskeletal: Other Male Surgical History: No Pertinent History Other Surgical History: plate and screws in lt elbow. - Social History Smoking Status: Former smoker Exposure to second hand smoke: Yes Drug Use: none Patient Lives Alone: No - Nursing Vital Signs Nursing Vital Signs: Initial Vital Signs Temperature 97.8 F 06/24/22 14:54 Pulse Rate 91 H 06/24/22 14:54 Respiratory Rate 22 06/24/22 14:54 Blood Pressure 167/94 06/24/22 14:54 O2 Sat by Pulse Oximetry 97 06/24/22 14:54 Pain Scale Pain Intensity 9 - Physical Exam General Appearance: alert Eyes, Ears, Nose, Throat Exam: moist mucous membranes Neck Exam: non-tender, supple Cardiovascular/Respiratory Exam: chest non-tender, normal breath sounds, regular rate/rhythm, no respiratory distress Gastrointestinal/Abdominal Exam: non-tender, guarding Back Exam: normal inspection, No vertebral tenderness Hips Exam: right: pain (Pain reproduced with flexion and internal rotation of right hip.), other (Right lower extremity neurovascular intact distally. PT DP pulses equal bilaterally. Compartments are soft. ), left: non-tender, normal inspection, normal range of motion, no evidence of injury Legs Exam: bilateral leg: non-tender, normal inspection, normal range of motion, no evidence of injury Knees Exam: bilateral knee: non-tender, normal inspection, normal range of motion, no evidence of injury Ankle Exam: bilateral ankle: non-tender, normal inspection, normal range of motion, no evidence of injury Foot Exam: bilateral foot: non-tender, normal inspection, normal range of motion, no evidence of injury Neuro/Tendon Exam: normal sensation, normal motor functions Mental Status Exam: alert, oriented x 3, cooperative Skin Exam: normal color, warm, dry SpO2 Interpretation: normal SpO2: 97 O2 Delivery: Room Air - Course Nursing assessment & vital signs reviewed: Yes - CT Exams Lower Extremity CT Interpretation: Tele-radiologist Report (Osteopenia, greater trochanter degenerative spurring and scattered arteriosclerotic disease. No new or acute findings.) Ordered Tests: Active Orders 24 hr Category Date Time Status LOWER EXTREMITY WO CONTRAST [CT] Stat Exams 06/24/22 15:34 Completed - Progress Progress: improved Progress Note: Patient is an 81-year-old male presents to our ED via EMS for evaluation of right hip pain. Patient's right hip pain is acute in onset. Patient has been experiencing intermittent right hip pain however it tends to resolve. Today's pain is a same however its more intense and did not resolve. Physical exam reveals right hip pain worse with right hip flexion and internal rotation. Patient's complaint is moderate in complexity. No significant comorbidities to contribute the patient's symptoms. CT scan ordered reveals arthritis of the involved hip. Imaging study results were used for medical decision making. Patient received Toradol for pain control. A referral to orthopedic clinic was completed. Patient agrees to follow-up with orthopedic clinic tomorrow for further evaluation and treatment. Level of the M service provided was moderate. Complexity of the problem is mod erate. Complexity of data reviewed was moderate. Risk of complication and/or risk of morbidity/mortality of patient management is low. No critical care time. Patient served as an independent historian. Patient received Toradol for pain control. Patient states pain improved. But not resolved. Patient had no abdominal pain. Bilateral DP PT pulses were equal and symmetric. Voices no other complaints or concerns at this time. Portions of this note were created with voice recognition technology. There may be grammatical, spelling, punctuation or sound alike errors 06/24/22 17:13 Counseled pt/family regarding: diagnosis, need for follow-up, rad results - Departure Departure Disposition: Home Clinical Impression: Hip pain, Hip arthritis Condition: Stable Critical Care Time: No Referrals: LUCERO COMBS [Primary Care Provider] - Follow up/PCP as directed Instructions: Contusion (DC) Additional Instructions: Discharge/Care Plan DAYANA BAKER was seen on 06/24/22 in the Emergency Room. The patient was counseled regarding Diagnosis,Lab results, Imaging studies, need for follow up and when to return to the Emergency Room. Prescriptions given: Discharge Note I have spoken with the patient and/or caregivers. I have explained the patient's condition, diagnosis and treatment plan based on the information available to me at this time. I have answered the patient's and/or caregiver's questions and addressed any concerns. The patient and/or caregivers have as good understanding of the patient's diagnosis, condition and treatment plan as can be expected at this point. The vital signs have been stable. The patient's condition is stable and appropriate for discharge from the emergency department. The patient will pursue further outpatient evaluation with the primary care physician or other designated or consulting physician as outlined in the discharge instructions. The patient and/or caregivers are agreeable to this plan of care and follow-up instructions have been explained in detail. The patient and/or caregivers have received these instruction. The patient/and or caregivers are aware that any significant change in condition or worsening of symptoms should prompt an immediate return to this or the closest emergency department or call 911. Outpatient Orders: Ortho Referral Time Frame: 1 Day, Facility: [facility], Location: [facility]
[2022-06-24 16:28] VITALS: BP 145/78; PULSE 90
--- NOTE | 2022-06-24 16:39 | XRAY ---
Indication: Pain 1 month. No known injury. Multiple contiguous axial images obtained through the right hip. Sagittal and coronal reformatted images obtained. Comparison: August 03, 2021 Osseous structures remain demineralized consistent with patient's age. Stable tiny degenerative spurring greater trochanter. No acute fracture, dislocation, or suspicious bony lesions. Again mild diffuse scattered vascular calcifications. Remaining visualized noncontrasted soft tissues are unremarkable. Impression: Stable osteopenia, greater trochanter degenerative spurring, and scattered arteriosclerotic disease. No new/acute abnormalities.
[2022-06-24 17:04] VITALS: O2SAT 97
[2022-06-24] MEDS ORDERED: TORAdol 30 mg Injection IM ONE (17:11)
[2022-06-24] MEDS ORDERED: TORAdol 30 mg Injection ONE (17:13)
== END 2022-06-24 17:37 | disposition home or self-care (01) ==
LOC: ED 14:49
DX: M16.11 Unilateral primary osteoarthritis, right hip (principal); M25.551 Pain in right hip; I10 Essential (primary) hypertension; E11.9 Type 2 diabetes mellitus without complications; Z79.84 Long term (current) use of oral hypoglycemic drugs; Z79.899 Other long term (current) drug therapy; Z28.310 Unvaccinated for COVID-19
CPT/HCPCS: 73700; 96372; 99283; J1885